=== PATIENT | female | born 1990 | race Hispanic/Latino ===

== ENCOUNTER 2017-01-03 17:56 | Emergency (ER) | payer OTHER ==
[2017-01-03 18:01] VITALS: BMI 21.7
[2017-01-03 18:10] VITALS: TEMP 98.6
[2017-01-03] MEDS ORDERED: Bacitracin 500 Units/gm Oint Foilpak UD TOP ONE (19:37)
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
[2017-01-03] MEDS ORDERED: Bacitracin 500 Units/gm Oint Foilpak UD ONE (19:53)
[2017-01-03 20:52] VITALS: BP 118/68; PULSE 75; RESP 18
[2017-01-03 21:51] VITALS: O2SAT 100
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
== END 2017-01-03 20:53 | disposition home or self-care (01) ==
LOC: C.ER 17:56
DX: S83.92XA Sprain of unspecified site of left knee, initial encounter (principal); V03.90XA Pedestrian on foot injured in collision with car, pick-up truck or van, unspecified whether traffic or nontraffic accident, initial encounter; Z23 Encounter for immunization